=== PATIENT | male | born 1950 | race Caucasian/White ===

== ENCOUNTER 2016-05-10 06:10 | Day surgery (SDC) | payer OTHER ==
--- NOTE | 2016-05-01 12:04 | HP ---
DATE OF ADMISSION: 05/10/2016 DATE OF DICTATION: 03/23/2016 DATE OF SURGERY: Undetermined. REASON FOR ADMISSION: Bilateral inguinal hernia. BRIEF HISTORY: This is a 65-year-old gentleman who a month ago noted a lump and swelling in his left groin region. Patient then presented to his primary care physician's office and was thought to have a left inguinal hernia. Patient presents today for evaluation of this hernia. Patient denies true pain or sharp discomfort in the left groin region; however, he states that he feels a lump in his left groin. It has gotten larger in the past month which was originally exacerbated with a coughing spell from a flu-type symptoms he has had. He also states with prolonged standing he occasionally feels a heaviness in the left groin and some twinges here and there. He has the same similar twinges on the right side as well. He has had no nausea, no vomiting, no change in bowel habits. PAST MEDICAL HISTORY: Denies coronary disease, hypertension, diabetes. PAST SURGICAL HISTORY: None. MEDICATION: None. ALLERGIES: None. SOCIAL HISTORY: Patient does not smoke. He drinks socially. PHYSICAL EXAMINATION: Lungs: Clear. Heart: Regular rhythm. Abdomen: Soft. Nontender. Nondistended. He has a moderate to large left inguinal hernia. The hernia is reducible in the supine position. The left scrotum and testicle is within normal limits. On the right side he has a inguinal hernia as well. He has no findings in the scrotum and testicle. IMPRESSION/PLAN: Bilateral inguinal hernias, left greater than right: this is a 65-year-old gentleman with bilateral inguinal hernias noted on examination. He presents with swelling and a protrusion in the left groin region. At this point , I would recommend proceeding with a bilateral laparoscopic inguinal herniorrhaphy with mesh. Indications, alternatives, complications to the procedure were discussed at length, questions have been answered. Will plan on obtaining written consent day of surgery. Kiel MCGARRY [id number] cc: Kiel Hooks
[2016-05-02 13:25] VITALS: BMI 23.8
[2016-05-10] MEDS ORDERED: TAMSULOSIN HCL 0.4 MG CAP.ER.24H (FP) ONE (06:22)
[2016-05-10] MEDS ORDERED: LIDOCAINE HCL/PF 2% SDV 5ML VIAL ONE (07:25)
[2016-05-10] MEDS ORDERED: PROPOFOL 20 ML ONE ×2 (07:26→07:29)
[2016-05-10] MEDS ORDERED: ROCURONIUM BROMIDE 50 MG/5 ML VIAL ONE (07:27)
[2016-05-10] MEDS ORDERED: SUCCINYLCHOLINE CHLORIDE 200 MG/10 ML VIAL ONE (07:28)
[2016-05-10] MEDS ORDERED: BUPIVACAINE HCL/PF 0.5% (5MG/ML) 10 ML VIAL ONE (07:30)
[2016-05-10] MEDS ORDERED: MIDAZOLAM HCL 2 MG/2 ML SINGLE DOSE VIAL ONE ×2 (07:33→07:41)
[2016-05-10] MEDS ORDERED: DEXAMETHASONE SOD PHOSPHATE/PF 10 MG/ML SDV ONE (07:33)
[2016-05-10] MEDS ORDERED: ceFAZolin SODIUM 1 GM VIAL ONE (08:07)
[2016-05-10] MEDS ORDERED: DESFLURANE GAS 240 ML BOTTLE IH ONE (08:15)
[2016-05-10] MEDS ORDERED: GLYCOPYRROLATE 0.2 MG/1 ML VIAL ONE (08:28)
[2016-05-10] MEDS ORDERED: NEOSTIGMINE METHYLSULFATE 0.5 MG/ML - 10 ML MDV ONE (08:28)
[2016-05-10] MEDS ORDERED: KETOROLAC TROMETHAMINE 30 MG/1 ML VIAL ONE (08:31)
[2016-05-10] MEDS ORDERED: ONDANSETRON 4 MG/2 ML VIAL ONE (08:31)
[2016-05-10] MEDS ORDERED: DEXAMETHASONE SOD PHOSPHATE 4 MG/1 ML VIAL ONE (08:31)
[2016-05-10] MEDS ORDERED: ePHEDrine SULFATE 50 MG/1 ML AMPULE ONE (08:38)
[2016-05-10] MEDS ORDERED: LIDOCAINE HCL 2% JELLY (5 ML/TUBE) ONE (08:47)
--- NOTE | 2016-05-10 09:48 | OP ---
DATE OF OPERATION: 05/10/2016 PREOPERATIVE DIAGNOSIS: Bilateral inguinal hernias. POSTOPERATIVE DIAGNOSIS: Bilateral indirect inguinal hernias. PROCEDURES: Bilateral laparoscopic inguinal herniorrhaphy with mesh. SURGEON: Francisco aGrg MD LINEN CHECKER: Josafat Caballero DO ANESTHESIA: Darcie Villa MD (general). ESTIMATED BLOOD LOSS: Minimal. SPECIMEN: None. INDICATIONS/PROCEDURE: This is a 65-year-old gentleman with a lump in the left groin. On physical examination, he has an obvious left inguinal hernia that is causing discomfort. He also is noted to have a right inguinal hernia. He is now here for operative repair. Patient was identified and appropriately positioned on the operating room table. After placement of general anesthesia, the abdomen was prepped and draped in the usual sterile fashion with ChloraPrep. An infraumbilical incision was made deep into the subcutaneous tissues. The fascia at the rectus muscle on the left was identified, divided sharply, the muscles split. Under direct vision, a dissector balloon followed by a structural balloon placed. Also, under direct vision, a suprapubic 11-mm port placed. The following structures on the left side identified, pubic tubercle, Coopers ligament, inferior epigastric vessels, spermatic cord, and lateral abdominal wall. During this dissection, patient was noted to have an indirect inguinal hernia, no direct hernia. The indirect hernia reduced along with a moderate-sized lipoma. A 4.5 x 6 piece of Versatex mesh was keyhole placed through the suprapubic port site. The mesh wrapped around the cord structures laterally to reconstruct the internal ring. Laterally, the mesh anchored to the anterior abdominal wall and lateral abdominal wall. Medially, the mesh anchored to the anterior abdominal wall, pubic tubercle, and Coopers ligament. Upon completion of the left side, similar structures on the right side identified. On the right side, again, he had no direct component. He had a small indirect inguinal hernia sac and a moderate-sized cord lipoma, as well. Both reduced back into the preperitoneal space. Another 4.5 x 6 piece of Versatex mesh was keyhole placed through the suprapubic port site. The mesh wrapped around the cord structures laterally to reconstruct the internal ring. Laterally, the mesh anchored to the anterior abdominal wall and lateral abdominal wall. There was good overlap of the mesh in the midline. The mesh in the midline was then anchored to the anterior abdominal wall pubic tubercle, and Coopers ligament. The anterior abdominal wall, lateral abdominal wall anchors all placed under counter palpation. The anchoring system used was the Covidien AbsorbaTack [place]. The ports were removed. Port sites were noted to be hemostatic. The fascia at the suprapubic port site and infraumbilical port site were reapproximated with interrupted 0 Vicryl suture. All skin closed with 4-0 subcuticular Biosyn followed by Dermabond. At the conclusion of the case, sponge counts were correct. ATTESTATION: Brief operative note handwritten on the preprinted form. [facility] queried prior to giving any prescriptions, and the prescription done electronically. Kiel MCGARRY [id number] cc: Dr. Guy Blount [facility]William
[2016-05-10] MEDS ORDERED: LACTATED RINGERS SOLUTION 1,000 ML IV SCH (11:00)
[2016-05-10] MEDS ORDERED: oxyCODONE HCL 5 MG TABLET PO PRN (11:09)
[2016-05-10] MEDS ORDERED: ONDANSETRON 4 MG/2 ML VIAL IVPUSH PRN (11:09)
[2016-05-10 12:34] VITALS: TEMP 98.2
[2016-05-10 12:58] VITALS: BP 118/68; PULSE 84
== END 2016-05-10 12:59 | disposition home or self-care (01) ==
LOC: FASU 06:10
PROVIDERS: ATTEND Surgery
PROC: 0YUA4JZ Supplement Bilateral Inguinal Region with Synthetic Substitute, Percutaneous Endoscopic Approach (ICD-10-PCS; principal; 2016-05-10 08:18)
DX: K40.20 Bilateral inguinal hernia, without obstruction or gangrene, not specified as recurrent (principal)
CPT/HCPCS: 94760

== ENCOUNTER 2022-01-09 10:38 | Day surgery (SDC) | payer OTHER, BC ==
[2022-01-05 15:50] VITALS: BMI 22.6
[2022-01-09 10:53] VITALS: RESP 18
[2022-01-09 13:34] VITALS: TEMP 98
[2022-01-09 13:36] VITALS: BP 121/70; PULSE 72
== END 2022-01-09 13:47 | disposition home or self-care (01) ==
LOC: FASU-ENDO 10:38
PROVIDERS: ATTEND Internal Medicine Gastroenterology
PROC: 0DBC8ZX Excision of Ileocecal Valve, Via Natural or Artificial Opening Endoscopic, Diagnostic (ICD-10-PCS; principal; 2022-01-09 12:46)
DX: Z12.11 Encounter for screening for malignant neoplasm of colon (principal); K63.5 Polyp of colon
CPT/HCPCS: 88305-TC